=== PATIENT | female | born 1990 | race Hispanic/Latino ===

== ENCOUNTER → 2017-06-01 | Outpatient (CLI) | payer BC ==
--- NOTE | 2017-06-01 22:27 | Diagnostic Imaging Report ---
Left breast ultrasound. INDICATION: Left breast lump. FINDINGS: The palpable lump at 12:00, 2 CM from the nipple is a simple appearing cyst measuring 2.1 x 1 x 2.1 CM with no internal vascularity or solid component. No other abnormality seen in this region. IMPRESSION: The palpable lump is a simple cyst at 12:00 zone with no suspicious lesion seen. ACR BI-RADS Category 2: Benign findings. Dictated by: Dictated on workstation # [id number]
== END ==
LOC: RAD 07:50
PROVIDERS: ATTEND Surgery
DX: N60.02 Solitary cyst of left breast (principal)
CPT/HCPCS: 76642

== ENCOUNTER → 2019-06-04 | Outpatient (CLI) | payer BC ==
--- NOTE | 2019-06-04 09:33 | Diagnostic Imaging Report ---
PROCEDURE: US Thyroid. TECHNIQUE: Multiple real-time grayscale images were obtained of the thyroid in various projections. INDICATION: Left neck pain and possible mass. FINDINGS: Right lobe of the thyroid measures 4.1 x 1.4 x 1.2 cm and the left lobe measures 4.2 x 1.5 x 1.3 cm. The isthmus is 2 mm in thickness. Both lobes of the thyroid demonstrate homogeneous echotexture. No discrete mass is detected. Interrogation of the area of pain along the left neck medially below the mandible was performed. No sonographic abnormality is seen. No mass is seen. IMPRESSION: Unremarkable thyroid ultrasound. Dictated by: Dictated on workstation # [id number]
== END ==
LOC: RAD 07:53
PROVIDERS: ATTEND Surgery
DX: M54.2 Cervicalgia (principal)
CPT/HCPCS: 76536

== ENCOUNTER → 2020-02-11 | Outpatient (CLI) | payer BC ==
--- NOTE | 2020-02-11 14:18 | Diagnostic Imaging Report ---
Left breast ultrasound, limited. Indication: Palpable lump, The previous left breast ultrasound exam performed on 06/01/2017 noted a 2.0 x 1.0 x 2.1 cm simple cyst in the 12 o'clock position of the left breast. On this study that cyst is again visualized and now measures 3.9 x 2.4 x 4.1 cm. This cyst has a smooth border with through transmission. The cyst is anechoic and there is no internal vascularity. I do suspect that this is a benign process. If clinically indicated, the cyst could be aspirated using ultrasound guidance. IMPRESSION: There is a large benign-appearing cyst near the patient's area of palpable abnormality. There is no primary or secondary sign of malignancy noted. ACR category 2 ACR BI-RADS Category 2: Benign findings. Result letter will be mailed to the patient. Note: At least 10% of breast cancer is not imaged by mammography. Dictated by: Dictated on workstation # [id number]
== END ==
LOC: RAD 12:07
PROVIDERS: ATTEND Surgery
DX: N60.02 Solitary cyst of left breast (principal); N63.20 Unspecified lump in the left breast, unspecified quadrant
CPT/HCPCS: 76642

== ENCOUNTER → 2023-02-20 | Outpatient (CLI) | payer BC ==
--- NOTE | 2023-02-20 12:27 | Diagnostic Imaging Report ---
INDICATION: survey. TECHNIQUE: Multiple real-time grayscale images were obtained over the gravid uterus. COMPARISON: None FINDINGS: There is a single live fetus in a cephalic presentation. heart rate was recorded at 143 BPM. Placenta is posterior. No previa is identified. Amniotic fluid volume is normal. Cervical length is 3.9 cm. survey shows kidneys, bladder, and stomach to be unremarkable. brain is unremarkable. There is a four-chamber heart. There is a three-vessel cord with normal insertion. spine is unremarkable. Biometrical measurements are as follows: Biparietal 4.94 cm, age 21 weeks 0 days. Head circumference 18.42 cm, age 20 weeks 6 days. Abdominal circumference 15.49 cm, age 20 weeks 5 days. Femur length 3.42 cm, age 20 weeks 6 days. Sonographic estimate age: 20 weeks 6 days. Sonographic estimated date of delivery: 07/04/2023. Estimated Weight: 373 gm (+/- 54 gm). LMP percentile: 70%. heart rate: 143 beats per minute. number: 1 of 1. IMPRESSION: Single live IUP of 20 weeks 6 days gestational age. Estimated date of confinement sonographically is 07/04/2023. No complicating features are detected. Dictated by: Dictated on workstation # [id number]
== END ==
LOC: RAD 09:37
PROVIDERS: ATTEND Nurse Practitioner Women's Health
DX: Z34.02 Encounter for supervision of normal first pregnancy, second trimester (principal); Z3A.20 20 weeks gestation of pregnancy
CPT/HCPCS: 76805

== ENCOUNTER 2023-06-22 06:08 | Inpatient (IN) | payer BC ==
[2023-06-22] VITALS (34 sets, daily range): BP systolic 105–166; BP diastolic 52–82
[~2023-06-22] VITALS: Ht 152.4 cm; Wt 56.3 kg
[2023-06-22] MEDS ORDERED: D5 LR 1,000 ML IV SOLN 1,000 ML IV SCH (06:30)
[2023-06-22] MEDS ORDERED: LACTATED RINGERS 1,000 ML 500 ML IV PRN (06:30)
[2023-06-22 06:48] LABS: BASOPHILS # (AUTO) 0.1 10^3/uL (0.0-0.1); BASOPHILS % (AUTO) 1 % (0-10); EOSINOPHILS # (AUTO) 0.1 10^3/uL (0.0-0.3); EOSINOPHILS % (AUTO) 1 % (0-10); HEMATOCRIT 37 % (35-52); LYMPHOCYTES # (AUTO) 3.1 10^3/uL (1.0-4.0); LYMPHOCYTES % (AUTO) 31 % (12-44); MEAN CORPUSCULAR HEMOGLOBIN 28 pg (25-34); MEAN CORPUSCULAR HGB CONC 33 g/dL (32-36); MEAN CORPUSCULAR VOLUME 86 fL (80-99); MEAN PLATELET VOLUME 11.3 fL (9.0-12.2); MONOCYTES # (AUTO) 0.7 10^3/uL (0.0-1.0); MONOCYTES % (AUTO) 7 % (0-12); NEUTROPHILS # (AUTO) 5.8 10^3/uL (1.8-7.8); NEUTROPHILS % (AUTO) 59 % (42-75); PLATELET COUNT 230 10^3/uL (130-400); WHITE BLOOD COUNT 9.8 10^3/uL (4.3-11.0)
--- NOTE | 2023-06-22 06:59 | History & Physical-OB ---
OB - Chief Complaint & HPI Date/Time Date of Admission: Date of Admission: Jun 22, 2023 at 06:08 Date seen by a Provider: Jun 22, 2023 Time Seen by a Provider: 06:55 Chief Complaint/History OB-Reason for Admission/Chief: Induction of Labor Hx : 1 Hx Para: 0 Expected Date of Delivery: Jun 22, 2023 Gestational Age in Weeks: 37 Gestational Age in Days: 5 Admission Nurse Assessment Rev: Yes History of Labs GBS neg Allergies and Home Medications Allergies Coded Allergies: No Known Drug Allergies (Unverified , 06/22/23) Patient Home Medication List Home Medication List Reviewed: Yes OB - History Hx of Present Care: Yes Ultrasounds: Normal mid trimester US Obstetrical Complications: Other (Cholestasis of ) Medical Complications: None Patient Past Medical History nc OB - Admission Exam Physical Exam HEENT: NCAT Heart: Rhythm Normal Lungs: Clear Abdomen: Gravid Extremities: Normal Reflexes: Normal Cervical Dilatation: 3cm Effacement: 75% Station: -1 Membranes: Intact Heart Rate: 130's Accelerations: Accelerations Present Decelerations: No Decelerations Short Term Variability: Present Half-Way Variability: Average (6-25) Contractions on Admission: >10 Minutes Apart Intensity: Mild Labs Laboratory Tests Test 06/22/23 06:35 Range/Units OB - Assessment/Plan/Diagnosis Assessment Admission Dx 32 yo @ 37.5 IOL due to cholestasis of Admission Status: Inpatient Order (span 2 midnights) Reason for Inpatient Admission: IOL at 37 weeks Plan Plan: Induction Induction Method: JINA JOHNSON DO Jun 22, 2023 06:59
[2023-06-22] MEDS ORDERED: OXYTOCIN DRIP PRE-MIX 500 ML IV SCH ×2 (09:15→16:15)
[2023-06-22] MEDS ORDERED: fentaNYL 2 mcg/ml BUPIVA 0.125 100 ML ONE (13:01)
[2023-06-22] MEDS ORDERED: fentaNYL INJECTION 100 MCG/2 ML VIAL ONE (13:05)
[2023-06-22] MEDS ORDERED: BUPIVACAINE 0.25% 10 ML VIAL ONE (13:05)
[2023-06-22] MEDS ORDERED: CATHETER FLUSH 10 ML SYR IV SCH ×2 (14:00→22:00)
[2023-06-22] MEDS ORDERED: LIDOCAINE 2% w/EPI 1:200,000 20 ML VIAL ONE (15:00)
[2023-06-22] MEDS ORDERED: LACTATED RINGERS 1,000 ML 1,000 ML IV ONE (16:00)
[2023-06-22] MEDS ORDERED: NALOXONE 0.4 MG/ML 1 ML VIAL IV PRN ×2 (16:00→16:15)
[2023-06-22] MEDS ORDERED: diphenhydrAMINE INJ 50 MG/ML VIAL IV PRN (16:00)
[2023-06-22] MEDS ORDERED: fentaNYL 2 mcg/ml BUPIVA 0.125 100 ML EPI SCH (16:00)
[2023-06-22] MEDS ORDERED: ONDANSETRON INJECTION 4 MG/2 ML (SDV) IV PRN (16:00)
[2023-06-22] MEDS ORDERED: CATHETER FLUSH 10 ML SYR IV PRN (16:00)
--- NOTE | 2023-06-22 16:13 | OB Labor & Delivery Record ---
L&D History Date of Service Date of Service: Jun 22, 2023 History Expected Date of Delivery: Jun 22, 2023 Gestational Age in Weeks: 37 Hx : 1 Hx Para: 0 Complications Events: Routine care (cholestasis of ) Operative Indications (Cesarea: N/A-Vaginal Delivery Intrapartal Events: None L&D Stage1 Stage One Onset of Labor - Date: Jun 22, 2023 Monitors and Tracing Monitor Mode: External Heart Rate: 150 Monitor Accelerations: Uniform Monitor Decelerations: Variable Station: -1 Senior Care Variability: Average (6-10) Short Term Variability: Present Presentation: Vertex Vital Signs VS - Last 72 Hours, by Label 06/22/23 06/22/23 06/22/23 06/22/23 08:12 09:45 10:15 10:30 Temp 36.4 Pulse 78 68 71 69 Resp 18 18 18 18 B/P (MAP) 115/67 (83) 128/72 (90) 117/67 (84) Pulse Ox 98 O2 Delivery Room Air Room Air Room Air Room Air 06/22/23 06/22/23 06/22/23 06/22/23 10:45 11:00 11:15 11:30 Pulse 72 70 70 78 Resp 18 18 18 18 B/P (MAP) 120/73 (89) 126/72 (90) 117/71 (86) 121/75 (90) O2 Delivery Room Air Room Air Room Air Room Air 06/22/23 06/22/23 06/22/23 06/22/23 11:45 12:00 12:15 12:30 Pulse 68 85 71 70 Resp 18 18 18 18 B/P (MAP) 138/64 (88) 112/75 (87) 112/73 (86) 131/68 (89) O2 Delivery Room Air Room Air Room Air Room Air 06/22/23 06/22/23 12:45 13:00 Pulse 73 77 Resp 18 18 B/P (MAP) 132/62 (85) 136/75 (95) Pulse Ox 98 98 O2 Delivery Room Air Room Air Rupture of Membranes Spontaneous Ruture of Membrane: No Amniotic Membrane Rupture Time: 0650 Amniotic Membrane Fluid Desc.: Clear Vaginal Bleeding Description: Normal Show Progress/Notes Patient admitted for IOL due to cholestasis at 37 weeks. AROM performed this AM, and pitocin augmentation started. She progressed after epidural was placed to complete and + 2 station L&D Stage2 Stage Two Stage II Date: Jun 22, 2023 Monitors and Tracing Monitor Mode: External Heart Rate: 150 Monitor Accelerations: Uniform Monitor Decelerations: Variable Senior Care Variability: Average (6-10) Short Term Variability: Present Position: Right Occiput Anterior Presentation: Vertex Cord Descript/Complications Cord Vessel Description: 3 Vessels Delivery Type Infant Delivery Method: Spontaneous Vaginal Anterior Shoulder: Left Episiotomy/Perineal Laceration Laceraction(s)/Extensions: Yes Episiotomy Description: Perineal Extension/lac, 2nd degree Degree (describe repair) 2nd degree perineal laceration repaired using 3-0 rapide and 2-0 vicryl suture Condition of Delivery 1 minute Comment: 8 5 minute Comment: 9 Notes Live male infant weight 5lbs 12 oz Condition of Infant Condition of Infant: Living Exam: No Observed Abnormalities Resuscitation Resuscitation: N/A - Spontaneous Resp L&D Stage3 Stage Three Stage III Date: Jun 22, 2023 Pictocin Pitocin Administration mu/min: 8 Pitocin ml/hr: 8 Pitocin Administration Comment: 30 mu wide open after delivery of placenta Placenta Delivery Placenta Delivery: Spontaneous Delivery Summary Summary Estimated blood loss (mL): 400 Attending at delivery: Jina Hurt DO Condition of Delivery Examined: Cervix Examined, Uterus Explored Post Hemorrhage: No Condition of Mother stable Condition of Infant (s) stable JINA HURT DO Jun 22, 2023 16:13
--- NOTE | 2023-06-22 16:14 | Discharge Inst-Women's Service ---
Discharge Inst-Women's Serv Depart Medication/Instructions New, Converted or Re-Newed RX: Transmitted to Pharmacy Final Diagnosis PPD 1 NVD Problems Reviewed?: Yes Consults/Follow Up Additional Follow Up: Yes Orders/Referrals Dr. Hurt in 6 weeks Activity Activity: Activity as Tolerated Driving Instructions: No Driving for 1 Week NO SMOKING: NO SMOKING Nothing Inside Vagina: No Douching, No [place], No Tampons Diet Discharge Diet: No Restrictions Symptoms to Report to : Bleeding Excessive, Pain Increased, Fever Over 101 Degrees F, Vaginal Bleeding Increase, Questions/Concerns For Any Problems or Questions: Contact Your Physician JINA HURT DO Jun 22, 2023 16:14
[2023-06-22] MEDS ORDERED: DIBUCAINE 1% OINTMENT 28 GM TUBE TOP PRN (16:15)
[2023-06-22] MEDS ORDERED: MEASLES, MUMPS, RUBELLA VACCINE (MMR) SQ ONE (16:15)
[2023-06-22] MEDS ORDERED: WITCH HAZEL(TUCKS) 40 EA JAR TOP PRN (16:15)
[2023-06-22] MEDS ORDERED: BENZOCAINE/MENTHOL (DERMOPLAST) 56 ML CAN TP PRN (16:15)
[2023-06-22] MEDS ORDERED: HYDROcodone/ACETAMINOPHEN 5 MG/325 MG TABLET PO PRN (16:15)
[2023-06-22] MEDS ORDERED: Tetanus/Diphtheria/Pertussis (Acell) ADULT Vaccine 0.5 ML IM ONE (16:15)
[2023-06-22] MEDS ORDERED: ACHD5005 PO (16:16)
[2023-06-22] MEDS ORDERED: DIBU30OI TOP (16:16)
[2023-06-22] MEDS ORDERED: BENZ78AE5 TP (16:16)
[2023-06-22] MEDS ORDERED: FERR325T24 PO (16:16)
[2023-06-22] MEDS ORDERED: IBUP-844 PO (16:16)
[2023-06-22] MEDS ORDERED: DOCU100C37 PO (16:16)
[2023-06-22] MEDS: IBUPROFEN 600 MG TABLET PO SCH (19:07)
[2023-06-22] MEDS: DOCUSATE SODIUM 100 MG CAPSULE PO SCH (21:14)
[2023-06-23] MEDS: IBUPROFEN 600 MG TABLET PO SCH ×3 (02:06→17:11)
[2023-06-23] MEDS ORDERED: CALCIUM CARBONATE 500 MG CHEW TABLET ONE (03:07)
[2023-06-23 03:09] VITALS: BP 115/75
[2023-06-23] MEDS ORDERED: CALCIUM CARBONATE 500 MG CHEW TABLET PO PRN (03:15)
[2023-06-23 06:10] LABS: BASOPHILS % (AUTO) 0 % (0-10); EOSINOPHILS # (AUTO) 0.1 10^3/uL (0.0-0.3); EOSINOPHILS % (AUTO) 1 % (0-10); HEMATOCRIT 26 % (35-52); HEMOGLOBIN 8.5 g/dL (11.5-16.0); LYMPHOCYTES # (AUTO) 2.3 10^3/uL (1.0-4.0); LYMPHOCYTES % (AUTO) 16 % (12-44); MEAN CORPUSCULAR HEMOGLOBIN 28 pg (25-34); MEAN CORPUSCULAR HGB CONC 33 g/dL (32-36); MEAN CORPUSCULAR VOLUME 86 fL (80-99); MEAN PLATELET VOLUME 11.5 fL (9.0-12.2); MONOCYTES # (AUTO) 0.9 10^3/uL (0.0-1.0); MONOCYTES % (AUTO) 6 % (0-12); NEUTROPHILS # (AUTO) 11.3 10^3/uL (1.8-7.8); NEUTROPHILS % (AUTO) 77 % (42-75); PLATELET COUNT 191 10^3/uL (130-400); WHITE BLOOD COUNT 14.6 10^3/uL (4.3-11.0)
[2023-06-23] MEDS ORDERED: PRENATAL VITAMIN TABLET PO SCH (07:00)
--- NOTE | 2023-06-23 08:14 | Postpartum Progress Note ---
Note Note Day # 1 Subjective: Patient is without complaints. Ambulating, voiding. Tolerating a regular diet without nausea or vomiting. Normal lochia. Pain is well controlled with oral pain medications. Objective: Physical Exam: General - Alert and oriented, no apparent distress Abdomen - Soft, appropriately tender to palpation, non-distended, fundus firm at umbilicus Extremities - no edema, negative Jaz's bilaterally Assessment: PPD 1 NVD Acute blood loss anemia Plan: Routine care. Encourage breast feeding. Encourage ambulation. Ferrous sulfate supplementation. Plan for discharge today Vitals - Labs Vital Signs - I&O Vital Signs Date Time Temp Pulse Resp B/P (MAP) Pulse Ox O2 Delivery O2 Flow Rate FiO2 06/23/23 03:09 37.1 93 18 115/75 (88) 99 Room Air 06/22/23 23:45 37.3 85 18 105/65 (78) 97 Room Air 06/22/23 19:30 37.3 96 18 119/73 (88) 100 Room Air 06/22/23 17:05 83 18 115/52 (73) Room Air 06/22/23 16:50 86 18 106/69 (81) Room Air 06/22/23 16:35 72 18 114/59 (77) Room Air 06/22/23 16:20 97 18 112/72 (85) Room Air 06/22/23 16:05 97 18 109/70 (83) Room Air 06/22/23 15:55 73 18 107/65 (79) Room Air 06/22/23 15:30 77 18 166/72 (103) 100 Room Air 06/22/23 15:15 74 18 135/75 (95) 100 Room Air 06/22/23 15:00 85 18 130/58 (82) 100 Room Air 06/22/23 14:45 75 18 132/60 (84) 99 Room Air 06/22/23 14:30 68 18 118/62 (80) 100 Room Air 06/22/23 14:15 84 18 105/65 (78) 100 Room Air 06/22/23 14:00 70 18 132/75 (94) 100 Room Air 06/22/23 13:50 36.5 86 18 129/82 (98) 99 Room Air 06/22/23 13:45 72 18 128/80 (96) 100 Room Air 06/22/23 13:41 65 18 123/76 (92) 99 06/22/23 13:30 66 18 131/63 (85) 98 Room Air 06/22/23 13:15 67 18 135/69 (91) 98 Room Air 06/22/23 13:00 77 18 136/75 (95) 98 Room Air 06/22/23 12:45 73 18 132/62 (85) 98 Room Air 06/22/23 12:30 70 18 131/68 (89) Room Air 06/22/23 12:15 71 18 112/73 (86) Room Air 06/22/23 12:00 85 18 112/75 (87) Room Air 06/22/23 11:45 68 18 138/64 (88) Room Air 06/22/23 11:30 78 18 121/75 (90) Room Air 06/22/23 11:15 70 18 117/71 (86) Room Air 06/22/23 11:00 70 18 126/72 (90) Room Air 06/22/23 10:45 72 18 120/73 (89) Room Air 06/22/23 10:30 69 18 117/67 (84) Room Air 06/22/23 10:15 71 18 128/72 (90) Room Air 06/22/23 09:45 68 18 115/67 (83) Room Air Labs Laboratory Tests 06/23/23 05:39: White Blood Count 14.6H, Red Blood Count 2.99L, Hemoglobin 8.5#L, Hematocrit 26L , Mean Corpuscular Volume 86, Mean Corpuscular Hemoglobin 28, Mean Corpuscular Hemoglobin Concent 33, Red Cell Distribution Width 13.9, Platelet Count 191, Mean Platelet Volume 11.5, Immature Granulocyte % (Auto) 0, Neutrophils (%) (Auto) 77H, Lymphocytes (%) (Auto) 16, Monocytes (%) (Auto) 6, Eosinophils (%) (Auto) 1, Basophils (%) (Auto) 0, Neutrophils # (Auto) 11.3H, Lymphocytes # (Auto) 2.3, Monocytes # (Auto) 0.9, Eosinophils # (Auto) 0.1, Basophils # (Auto) 0.0, Immature Granulocyte # (Auto) 0.1 JINA HURT DO Jun 23, 2023 08:14
[2023-06-23] MEDS ORDERED: FERROUS SULFATE 325 MG (IRON) TABLET PO SCH (09:00)
--- NOTE | 2023-06-23 10:04 | Anesthesia-Regional Post-Op ---
Regional Patient Condition Mental Status: Alert, Oriented x3 Circulation: Same as Pre-Op Headache: Absent Sensation: Full Recovery Motor Block: Absent Post Op Complications Complications None Follow Up Care/Instructions Patient Instructions None needed. Anesthesia/Patient Condition Patient is doing well, no complaints, stable vital signs, no apparent adverse anesthesia problems. No complications reported per nursing. DENNY BOSS DO Jun 23, 2023 10:04
[2023-06-23 10:20] VITALS: BP 111/68
[2023-06-23] MEDS: DOCUSATE SODIUM 100 MG CAPSULE PO SCH (10:22)
[2023-06-23 12:45] VITALS: BP 104/55
[2023-06-23 13:36] VITALS: BP 104/55
[2023-06-23 17:12] VITALS: BP 120/59
== END 2023-06-23 18:15 | disposition home or self-care (01) | DRG 805 ==
LOC: LDRP 06:08
PROVIDERS: ADMIT Obstetrics & Gynecology; ATTEND Obstetrics & Gynecology
PROC: 10E0XZZ Delivery of Products of Conception, External Approach (ICD-10-PCS; principal; 2023-06-22)
PROC: 0KQM0ZZ Repair Perineum Muscle, Open Approach (ICD-10-PCS; 2023-06-22)
PROC: 10907ZC Drainage of Amniotic Fluid, Therapeutic from Products of Conception, Via Natural or Artificial Opening (ICD-10-PCS; 2023-06-22)
DX: O26.643 Intrahepatic cholestasis of pregnancy, third trimester (principal); K83.1 Obstruction of bile duct; Z37.0 Single live birth; D62 Acute posthemorrhagic anemia; Z3A.37 37 weeks gestation of pregnancy; O70.1 Second degree perineal laceration during delivery; O90.81 Anemia of the puerperium
CPT/HCPCS: 36415; 85025; 86780; 86850; 86900; 86901

== ENCOUNTER → 2023-08-14 | Outpatient (CLI) | payer BC ==
[~2023-08-14] MED LIST: ACHD5005 PO; BENZ78AE5 TP; DIBU30OI TOP; DOCU100C37 PO; FERR325T24 PO; IBUP-844 PO
--- NOTE | 2023-08-14 12:32 | Diagnostic Imaging Report ---
EXAMINATION: Ultrasound right breast limited. INDICATION: Right breast mass. COMPARISON: There are no prior right breast ultrasound examinations available for comparison. The left breast ultrasound exam of 02/11/2020 did note a 3.9 x 2.4 x 4.1 cm benign-appearing cyst in the left breast. FINDINGS: On this study in the area of the patient's palpable abnormality in the 10 o'clock position of the breast roughly 9-10 cm from nipple, there is a 4.4 x 2.6 x 3.6 cm well-circumscribed avascular anechoic mass with through transmission. This has the appearance of a simple cyst and is quite similar to the cyst seen in the left breast on the prior exam. There is no solid mass to suggest malignancy. IMPRESSION: The patient's palpable abnormality is felt to relate to a large simple cyst. There is no evidence for malignancy. ACR BI-RADS Category 2: Benign findings. Dictated by: Dictated on workstation # [id number]
== END ==
LOC: RAD 10:34
PROVIDERS: ATTEND Nurse Practitioner Women's Health
DX: N60.01 Solitary cyst of right breast (principal)